=== PATIENT | male | born 1970 | race African-American/Black ===

== ENCOUNTER 2016-11-23 09:37 | Emergency (ER) | payer OTHER ==
[~2016-11-23] VITALS: Ht 180.3 cm; Wt 95.3 kg
--- NOTE | ~2016-11-23 | EKG ---
[address] [address] ELECTROCARDIOGRAM REPORT Name: LEIA ARZATE Room #: [facility], 1928–1983 Stacy#: [id number] Admission: 11/23/16 Attend Phys: Discharge: 11/23/16 Date of : 66 Report #: [id number] THIS REPORT FOR: //name// [facility] ED Test Date: 2016-11-23 Test Time: 09:59:18 Pat Name: LEIA ARZATE Department: Room: Gender: Jacquard Fixer: Bryanna CHENG : 1970 Requested By: Raúl Rodriguez Order Number: [id number] MD: Leonardo Gonsales Measurements Intervals [place] Rate: 57 P: 59 NE: 170 QRS: -3 QRSD: 97 T: 32 QT: 411 QTc: 401 Interpretive Statements Sinus rhythm No previous ECG available for comparison Electronically Signed On 11-23-2016 13:04:13 CDT by Leonardo Gonsales [email or web address] <ELECTRONICALLY SIGNED> By: Leonardo Gonsales MD 11/23/16 1304 [id number] Leonardo Gonsales MD /EULOGIO
[2016-11-23] MEDS ORDERED: NOHOMEMEDICATIONS (09:57)
[2016-11-23 10:24] VITALS: BP 135/98
[2016-11-23 10:37] LABS: HEMATOCRIT 40.8 % (42.0-52.0); HEMOGLOBIN 14.5 gm/dL (14.0-18.0); MCH 32.6 pg (26.0-34.0); MCHC 35.5 g/dL (28.0-37.0); MCV 91.8 fL (80.0-100.0); RBC 4.45 mil/uL (4.50-6.00); RDW 13.3 % (10.5-14.5); WBC 4.6 thou/uL (4.0-11.0)
[2016-11-23 10:42] LABS: ANION GAP 8 mmol/L (7-16); BUN 21 mg/dL (7-18); CALCIUM 8.7 mg/dL (8.5-10.1); CHLORIDE 108 mmol/L (98-107); CO2 23 mmol/L (21-32); CREATININE 1.2 mg/dL (0.7-1.3); GLUCOSE 106 mg/dL (74-106); POTASSIUM 3.9 mmol/L (3.5-5.1); SODIUM 139 mmol/L (136-145)
[2016-11-23 10:50] LABS: TROPONIN-I < 0.04 ng/mL (<0.04-0.07)
== END 2016-11-23 11:09 | disposition home or self-care (01) ==
LOC: ER 09:37
PROVIDERS: Emergency Medicine
DX: I10 Essential (primary) hypertension (principal); R42 Dizziness and giddiness; R51 Headache; F10.99 Alcohol use, unspecified with unspecified alcohol-induced disorder